=== PATIENT | male | born 1965 | race Caucasian/White ===

== ENCOUNTER 2022-05-09 10:13 | Inpatient (IN) | payer OTHER ==
[2022-05-09 10:52] VITALS: BMI 29.2
[2022-05-09] MEDS ORDERED: LOPERAMIDE HCL 2 MG CAPSULE PO PRN (11:15)
[2022-05-09] MEDS ORDERED: P-EPHED 60MG/TRIPROLIDI 2.5MG TABLET PO PRN (11:15)
[2022-05-09] MEDS ORDERED: MAG HYDROX/AL HYDROX/SIMETH 30 ML UNIT-DOSE CUP PO PRN (11:15)
[2022-05-09] MEDS ORDERED: guaiFENesin 200 MG/10 ML 10 ML UNIT-DOSE CUPS PO PRN (11:15)
[2022-05-09] MEDS ORDERED: hydrOXYzine PAMOATE 25 MG CAPSULE (FP) PO PRN (11:15)
[2022-05-09] MEDS ORDERED: BENZOCAINE/MENTHOL (CHLORASEPTIC ) LOZENGE MM PRN (11:15)
[2022-05-09 14:50] LABS: HEMATOCRIT 38.4 % (35.4-49); HEMOGLOBIN 12.7 GM/dL (11.7-16.9); MCH 30.6 pg (25.7-33.7); MEAN CELL VOLUME 92.7 fl (80-96); MEAN PLT VOLUME 8.2 fl (7.5-11.1); PLATELET COUNT 179 10^3/uL (134-434); RBC 4.14 M/mm3 (4.00-5.60); RDW 14.9 % (11.9-15.9); WHITE BLOOD COUNT 4.4 K/mm3 (4.0-10.0)
[2022-05-09 15:54] LABS: SYPHILIS W/ RPR CONF NON-REACTIVE (NONREACTIVE)
[2022-05-09 16:26] LABS: BLOOD UREA NITROGEN 16.1 mg/dL (7-18); CALCIUM 9.4 mg/dL (8.5-10.1)
[2022-05-09 16:27] LABS: ALBUMIN 3.4 g/dl (3.4-5.0)
[2022-05-09 16:30] LABS: CREATININE 1.4 mg/dL (0.55-1.3)
[2022-05-09 16:31] LABS: BILIRUBIN,TOTAL 0.2 mg/dL (0.2-1); TOT PROT 7.2 g/dl (6.4-8.2)
[2022-05-09] MEDS: NICOTINE 14 MG/24 HOURS TOPICAL PATCH TD SCH (16:54)
[2022-05-09] MEDS: PRENATAL VITAMINS W/ FOLIC ACID TABLET (FP) PO SCH (16:54)
[2022-05-09] MEDS ORDERED: TUBERCULIN PPD 5 TU/0.1ML VIAL ID ONE (16:55)
[2022-05-09] MEDS: THIAMINE HCL 100 MG TABLET (FP) PO SCH (21:09)
[2022-05-09] MEDS: MELATONIN 5 MG TABLETS PO SCH (21:09)
[2022-05-10 00:17] LABS: URINE APPEARANCE CLEAR; URINE BILIRUBIN NEGATIVE (NEGATIVE); URINE COLOR YELLOW; URINE GLUCOSE (UA) NEGATIVE (NEGATIVE); URINE KETONE NEGATIVE (NEGATIVE); URINE LEUK ESTERASE NEGATIVE (NEGATIVE); URINE NITRITE NEGATIVE (NEGATIVE); URINE PROTEIN NEGATIVE (NEGATIVE); URINE UROBILINOGEN 0.2 mg/dL (0.2-1.0)
[2022-05-10] MEDS ORDERED: methaDONE HCL 40 MG DISPERSABLE TABLET PO ONE (08:46)
[2022-05-10] MEDS: PRENATAL VITAMINS W/ FOLIC ACID TABLET (FP) PO SCH (10:33)
[2022-05-10] MEDS: NICOTINE 14 MG/24 HOURS TOPICAL PATCH TD SCH (10:33)
[2022-05-10] MEDS: THIAMINE HCL 100 MG TABLET (FP) PO SCH (21:10)
[2022-05-10] MEDS: MELATONIN 5 MG TABLETS PO SCH (21:10)
[2022-05-10] MEDS: LITHIUM CARBONATE 450 MG TABLET.ER PO SCH (21:11)
[2022-05-10] MEDS: MIRTAZAPINE 15 MG TABLET (FP) PO SCH (21:11)
[2022-05-10] MEDS: OLANZapine 10 MG TABLET PO SCH (21:11)
[2022-05-10] MEDS ORDERED: LITHIUM CARBONATE 450 MG TABLET.ER PO SCH (22:00)
[2022-05-11] MEDS ORDERED: methaDONE HCL 40 MG DISPERSABLE TABLET PO ONE (06:00)
[2022-05-11] MEDS ORDERED: methaDONE HCL 10 MG TABLET PO ONE (06:00)
[2022-05-11] MEDS: PRENATAL VITAMINS W/ FOLIC ACID TABLET (FP) PO SCH (09:39)
[2022-05-11] MEDS: NICOTINE 14 MG/24 HOURS TOPICAL PATCH TD SCH (09:39)
[2022-05-11] MEDS: OLANZapine 10 MG TABLET PO SCH (21:13)
[2022-05-11] MEDS: LITHIUM CARBONATE 450 MG TABLET.ER PO SCH (21:13)
[2022-05-11] MEDS: MELATONIN 5 MG TABLETS PO SCH (21:14)
[2022-05-11] MEDS: THIAMINE HCL 100 MG TABLET (FP) PO SCH (21:14)
[2022-05-11] MEDS: MIRTAZAPINE 15 MG TABLET (FP) PO SCH (21:14)
[2022-05-12] MEDS ORDERED: methaDONE HCL 10 MG TABLET PO ONE (06:00)
[2022-05-12] MEDS: methaDONE 40 MG, methaDONE 10 MG PO SCH (06:32)
[2022-05-12] MEDS: PRENATAL VITAMINS W/ FOLIC ACID TABLET (FP) PO SCH (09:03)
[2022-05-12] MEDS: NICOTINE 14 MG/24 HOURS TOPICAL PATCH TD SCH (09:04)
[2022-05-12] MEDS: OLANZapine 10 MG TABLET PO SCH (21:04)
[2022-05-12] MEDS: MIRTAZAPINE 15 MG TABLET (FP) PO SCH (21:04)
[2022-05-12] MEDS: LITHIUM CARBONATE 450 MG TABLET.ER PO SCH (21:04)
[2022-05-12] MEDS: THIAMINE HCL 100 MG TABLET (FP) PO SCH (21:04)
[2022-05-12] MEDS: MELATONIN 5 MG TABLETS PO SCH (21:04)
[2022-05-13] MEDS: methaDONE 40 MG, methaDONE 10 MG PO SCH (05:45)
[2022-05-13] MEDS ORDERED: methaDONE HCL 10 MG TABLET PO ONE (06:00)
[2022-05-13] MEDS: PRENATAL VITAMINS W/ FOLIC ACID TABLET (FP) PO SCH (09:55)
[2022-05-13] MEDS: NICOTINE 14 MG/24 HOURS TOPICAL PATCH TD SCH (09:56)
[2022-05-13] MEDS: MELATONIN 5 MG TABLETS PO SCH (21:24)
[2022-05-13] MEDS: LITHIUM CARBONATE 450 MG TABLET.ER PO SCH (21:24)
[2022-05-13] MEDS: OLANZapine 10 MG TABLET PO SCH (21:24)
[2022-05-13] MEDS: MIRTAZAPINE 15 MG TABLET (FP) PO SCH (21:24)
[2022-05-13] MEDS: THIAMINE HCL 100 MG TABLET (FP) PO SCH (21:24)
[2022-05-14] MEDS ORDERED: methaDONE HCL 10 MG TABLET PO ONE (06:00)
[2022-05-14] MEDS: methaDONE 40 MG, methaDONE 20 MG PO SCH (06:01)
[2022-05-14] MEDS: NICOTINE 14 MG/24 HOURS TOPICAL PATCH TD SCH (09:49)
[2022-05-14] MEDS: PRENATAL VITAMINS W/ FOLIC ACID TABLET (FP) PO SCH (09:49)
[2022-05-14] MEDS: OLANZapine 10 MG TABLET PO SCH (21:13)
[2022-05-14] MEDS: LITHIUM CARBONATE 450 MG TABLET.ER PO SCH (21:13)
[2022-05-14] MEDS: MIRTAZAPINE 15 MG TABLET (FP) PO SCH (21:13)
[2022-05-14] MEDS: MELATONIN 5 MG TABLETS PO SCH (21:13)
[2022-05-14] MEDS: THIAMINE HCL 100 MG TABLET (FP) PO SCH (21:13)
[2022-05-15] MEDS ORDERED: methaDONE HCL 10 MG TABLET PO ONE (06:00)
[2022-05-15] MEDS: methaDONE 40 MG, methaDONE 20 MG PO SCH (06:21)
[2022-05-15] MEDS: NICOTINE 14 MG/24 HOURS TOPICAL PATCH TD SCH (10:05)
[2022-05-15] MEDS: PRENATAL VITAMINS W/ FOLIC ACID TABLET (FP) PO SCH (10:05)
[2022-05-15] MEDS: HYDROCORTISONE 0.5% TOPICAL CREAM 30 GM TUBE TP PRN (10:06)
[2022-05-15] MEDS: MELATONIN 5 MG TABLETS PO SCH (21:28)
[2022-05-15] MEDS: OLANZapine 10 MG TABLET PO SCH (21:29)
[2022-05-15] MEDS: LITHIUM CARBONATE 450 MG TABLET.ER PO SCH (21:29)
[2022-05-15] MEDS: NICOTINE 10 MG CARTRIDGE (INHALER) IH PRN (21:29)
[2022-05-15] MEDS: MIRTAZAPINE 15 MG TABLET (FP) PO SCH (21:29)
[2022-05-15] MEDS: THIAMINE HCL 100 MG TABLET (FP) PO SCH (21:29)
[2022-05-16] MEDS ORDERED: methaDONE HCL 10 MG TABLET PO ONE (06:00)
[2022-05-16] MEDS ORDERED: methaDONE 40 MG, methaDONE 30 MG PO ONE (06:00)
[2022-05-16] MEDS: NICOTINE 14 MG/24 HOURS TOPICAL PATCH TD SCH (09:46)
[2022-05-16] MEDS: PRENATAL VITAMINS W/ FOLIC ACID TABLET (FP) PO SCH (09:46)
[2022-05-16] MEDS: NICOTINE 10 MG CARTRIDGE (INHALER) IH PRN ×2 (09:47→21:12)
[2022-05-16] MEDS: MIRTAZAPINE 15 MG TABLET (FP) PO SCH (21:12)
[2022-05-16] MEDS: LITHIUM CARBONATE 450 MG TABLET.ER PO SCH (21:12)
[2022-05-16] MEDS: MELATONIN 5 MG TABLETS PO SCH (21:12)
[2022-05-16] MEDS: THIAMINE HCL 100 MG TABLET (FP) PO SCH (21:12)
[2022-05-16] MEDS: OLANZapine 10 MG TABLET PO SCH (21:12)
[2022-05-17] MEDS ORDERED: methaDONE HCL 10 MG TABLET PO ONE ×2 (06:00→06:37)
[2022-05-17] MEDS ORDERED: methaDONE 40 MG, methaDONE 30 MG PO ONE (07:15)
[2022-05-17] MEDS: NICOTINE 10 MG CARTRIDGE (INHALER) IH PRN ×2 (09:28→21:01)
[2022-05-17] MEDS: NICOTINE 14 MG/24 HOURS TOPICAL PATCH TD SCH (09:28)
[2022-05-17] MEDS: HYDROCORTISONE 0.5% TOPICAL CREAM 30 GM TUBE TP PRN (09:28)
[2022-05-17] MEDS: PRENATAL VITAMINS W/ FOLIC ACID TABLET (FP) PO SCH (09:28)
[2022-05-17] MEDS: MIRTAZAPINE 15 MG TABLET (FP) PO SCH (21:00)
[2022-05-17] MEDS: THIAMINE HCL 100 MG TABLET (FP) PO SCH (21:00)
[2022-05-17] MEDS: LITHIUM CARBONATE 450 MG TABLET.ER PO SCH (21:00)
[2022-05-17] MEDS: OLANZapine 10 MG TABLET PO SCH (21:00)
[2022-05-17] MEDS: MELATONIN 5 MG TABLETS PO SCH (21:00)
[2022-05-18] MEDS ORDERED: methaDONE HCL 10 MG TABLET PO ONE (06:00)
[2022-05-18] MEDS: methaDONE HCL 40 MG DISPERSABLE TABLET PO SCH (06:02)
[2022-05-18] MEDS: PRENATAL VITAMINS W/ FOLIC ACID TABLET (FP) PO SCH (09:45)
[2022-05-18] MEDS: NICOTINE 10 MG CARTRIDGE (INHALER) IH PRN ×3 (09:45→21:21)
[2022-05-18] MEDS: NICOTINE 14 MG/24 HOURS TOPICAL PATCH TD SCH (09:45)
[2022-05-18] MEDS: OLANZapine 10 MG TABLET PO SCH (21:21)
[2022-05-18] MEDS: THIAMINE HCL 100 MG TABLET (FP) PO SCH (21:21)
[2022-05-18] MEDS: MIRTAZAPINE 15 MG TABLET (FP) PO SCH (21:21)
[2022-05-18] MEDS: MELATONIN 5 MG TABLETS PO SCH (21:22)
[2022-05-18] MEDS: LITHIUM CARBONATE 450 MG TABLET.ER PO SCH (21:22)
[2022-05-18] MEDS: HYDROCORTISONE 0.5% TOPICAL CREAM 30 GM TUBE TP PRN (21:23)
[2022-05-19] MEDS: methaDONE HCL 40 MG DISPERSABLE TABLET PO SCH (05:51)
[2022-05-19] MEDS ORDERED: methaDONE HCL 10 MG TABLET PO SCH (06:00)
[2022-05-19] MEDS: PRENATAL VITAMINS W/ FOLIC ACID TABLET (FP) PO SCH (09:23)
[2022-05-19] MEDS: NICOTINE 10 MG CARTRIDGE (INHALER) IH PRN ×2 (09:23→21:49)
[2022-05-19] MEDS: NICOTINE 14 MG/24 HOURS TOPICAL PATCH TD SCH (09:23)
[2022-05-19] MEDS: MELATONIN 5 MG TABLETS PO SCH (21:48)
[2022-05-19] MEDS: MIRTAZAPINE 15 MG TABLET (FP) PO SCH (21:49)
[2022-05-19] MEDS: HYDROCORTISONE 0.5% TOPICAL CREAM 30 GM TUBE TP PRN (21:49)
[2022-05-19] MEDS: LITHIUM CARBONATE 450 MG TABLET.ER PO SCH (21:49)
[2022-05-19] MEDS: THIAMINE HCL 100 MG TABLET (FP) PO SCH (21:50)
[2022-05-19] MEDS: OLANZapine 10 MG TABLET PO SCH (21:51)
[2022-05-20] MEDS: methaDONE HCL 40 MG DISPERSABLE TABLET PO SCH (06:12)
[2022-05-20] MEDS: NICOTINE 10 MG CARTRIDGE (INHALER) IH PRN ×3 (06:13→21:10)
[2022-05-20] MEDS: PRENATAL VITAMINS W/ FOLIC ACID TABLET (FP) PO SCH (09:31)
[2022-05-20] MEDS: NICOTINE 14 MG/24 HOURS TOPICAL PATCH TD SCH (09:32)
[2022-05-20] MEDS: MELATONIN 5 MG TABLETS PO SCH (21:08)
[2022-05-20] MEDS: THIAMINE HCL 100 MG TABLET (FP) PO SCH (21:08)
[2022-05-20] MEDS: MIRTAZAPINE 15 MG TABLET (FP) PO SCH (21:09)
[2022-05-20] MEDS: HYDROCORTISONE 0.5% TOPICAL CREAM 30 GM TUBE TP PRN (21:09)
[2022-05-20] MEDS: LITHIUM CARBONATE 450 MG TABLET.ER PO SCH (21:09)
[2022-05-20] MEDS: OLANZapine 10 MG TABLET PO SCH (21:09)
[2022-05-21] MEDS: NICOTINE 10 MG CARTRIDGE (INHALER) IH PRN ×3 (05:56→21:16)
[2022-05-21] MEDS: methaDONE HCL 40 MG DISPERSABLE TABLET PO SCH (05:57)
[2022-05-21] MEDS: NICOTINE 14 MG/24 HOURS TOPICAL PATCH TD SCH (10:34)
[2022-05-21] MEDS: PRENATAL VITAMINS W/ FOLIC ACID TABLET (FP) PO SCH (10:34)
[2022-05-21] MEDS: HYDROCORTISONE 0.5% TOPICAL CREAM 30 GM TUBE TP PRN (14:05)
[2022-05-21] MEDS: LITHIUM CARBONATE 450 MG TABLET.ER PO SCH (21:16)
[2022-05-21] MEDS: MELATONIN 5 MG TABLETS PO SCH (21:16)
[2022-05-21] MEDS: OLANZapine 10 MG TABLET PO SCH (21:16)
[2022-05-21] MEDS: MIRTAZAPINE 15 MG TABLET (FP) PO SCH (21:16)
[2022-05-21] MEDS: THIAMINE HCL 100 MG TABLET (FP) PO SCH (22:08)
[2022-05-22] MEDS: methaDONE HCL 40 MG DISPERSABLE TABLET PO SCH (06:06)
[2022-05-22] MEDS: NICOTINE 10 MG CARTRIDGE (INHALER) IH PRN ×4 (06:06→21:09)
[2022-05-22 06:57] VITALS: RESP 18
[2022-05-22] MEDS: NICOTINE 14 MG/24 HOURS TOPICAL PATCH TD SCH (09:33)
[2022-05-22] MEDS: PRENATAL VITAMINS W/ FOLIC ACID TABLET (FP) PO SCH (09:33)
[2022-05-22] MEDS: HYDROCORTISONE 0.5% TOPICAL CREAM 30 GM TUBE TP PRN (09:34)
[2022-05-22] MEDS: COLLOIDAL OATMEAL 1 BAR EACH TP PRN (14:13)
[2022-05-22] MEDS ORDERED: CALAMINE 8% TOPICAL LOTION 177 ML BOTTLE TP PRN (14:19)
[2022-05-22] MEDS: LITHIUM CARBONATE 450 MG TABLET.ER PO SCH (21:08)
[2022-05-22] MEDS: MIRTAZAPINE 15 MG TABLET (FP) PO SCH (21:08)
[2022-05-22] MEDS: THIAMINE HCL 100 MG TABLET (FP) PO SCH (21:08)
[2022-05-22] MEDS: MELATONIN 5 MG TABLETS PO SCH (21:08)
[2022-05-22] MEDS: OLANZapine 10 MG TABLET PO SCH (21:08)
[2022-05-23] MEDS: methaDONE HCL 40 MG DISPERSABLE TABLET PO SCH (06:10)
[2022-05-23] MEDS: NICOTINE 10 MG CARTRIDGE (INHALER) IH PRN ×4 (06:11→21:10)
[2022-05-23] MEDS: PRENATAL VITAMINS W/ FOLIC ACID TABLET (FP) PO SCH (09:25)
[2022-05-23] MEDS: NICOTINE 14 MG/24 HOURS TOPICAL PATCH TD SCH (09:25)
[2022-05-23 11:03] LABS: CALCIUM 9.1 mg/dL (8.5-10.1)
[2022-05-23 11:04] LABS: ALBUMIN 3.3 g/dl (3.4-5.0); BLOOD UREA NITROGEN 22.4 mg/dL (7-18)
[2022-05-23 11:06] LABS: CREATININE 1.3 mg/dL (0.55-1.3)
[2022-05-23 11:08] LABS: BILIRUBIN,TOTAL 0.4 mg/dL (0.2-1)
[2022-05-23] MEDS: hydrOXYzine PAMOATE 25 MG CAPSULE (FP) PO PRN ×2 (15:37→21:10)
[2022-05-23] MEDS: MIRTAZAPINE 15 MG TABLET (FP) PO SCH (21:10)
[2022-05-23] MEDS: LITHIUM CARBONATE 450 MG TABLET.ER PO SCH (21:10)
[2022-05-23] MEDS: MELATONIN 5 MG TABLETS PO SCH (21:10)
[2022-05-23] MEDS: THIAMINE HCL 100 MG TABLET (FP) PO SCH (21:10)
[2022-05-23] MEDS: OLANZapine 10 MG TABLET PO SCH (21:10)
[2022-05-24] MEDS: methaDONE HCL 40 MG DISPERSABLE TABLET PO SCH (06:11)
[2022-05-24] MEDS: NICOTINE 10 MG CARTRIDGE (INHALER) IH PRN ×4 (06:11→21:09)
[2022-05-24] MEDS: PRENATAL VITAMINS W/ FOLIC ACID TABLET (FP) PO SCH (09:56)
[2022-05-24] MEDS: NICOTINE 14 MG/24 HOURS TOPICAL PATCH TD SCH (11:06)
[2022-05-24] MEDS: hydrOXYzine PAMOATE 25 MG CAPSULE (FP) PO PRN ×2 (14:00→21:09)
[2022-05-24] MEDS: THIAMINE HCL 100 MG TABLET (FP) PO SCH (21:09)
[2022-05-24] MEDS: LITHIUM CARBONATE 450 MG TABLET.ER PO SCH (21:09)
[2022-05-24] MEDS: MIRTAZAPINE 15 MG TABLET (FP) PO SCH (21:09)
[2022-05-24] MEDS: MELATONIN 5 MG TABLETS PO SCH (21:09)
[2022-05-24] MEDS: OLANZapine 10 MG TABLET PO SCH (21:09)
[2022-05-25] MEDS: NICOTINE 10 MG CARTRIDGE (INHALER) IH PRN ×4 (06:07→21:00)
[2022-05-25] MEDS: methaDONE HCL 40 MG DISPERSABLE TABLET PO SCH (06:08)
[2022-05-25] MEDS: IBUPROFEN 400 MG TABLET (FP) PO PRN ×2 (06:08→20:05)
[2022-05-25] MEDS: hydrOXYzine PAMOATE 25 MG CAPSULE (FP) PO PRN ×2 (06:09→21:00)
[2022-05-25] MEDS: NICOTINE 14 MG/24 HOURS TOPICAL PATCH TD SCH (09:56)
[2022-05-25] MEDS: PRENATAL VITAMINS W/ FOLIC ACID TABLET (FP) PO SCH (09:57)
[2022-05-25] MEDS: ACETAMINOPHEN 325 MG TABLET (FP) PO PRN (09:58)
[2022-05-25] MEDS: BACLOFEN 10 MG TABLET (FP) PO SCH ×2 (13:10→20:59)
[2022-05-25] MEDS: MELATONIN 5 MG TABLETS PO SCH (20:59)
[2022-05-25] MEDS: OLANZapine 10 MG TABLET PO SCH (20:59)
[2022-05-25] MEDS: THIAMINE HCL 100 MG TABLET (FP) PO SCH (20:59)
[2022-05-25] MEDS: MIRTAZAPINE 15 MG TABLET (FP) PO SCH (20:59)
[2022-05-25] MEDS: LITHIUM CARBONATE 450 MG TABLET.ER PO SCH (21:42)
[2022-05-26] MEDS: BACLOFEN 10 MG TABLET (FP) PO SCH ×3 (06:08→21:41)
[2022-05-26] MEDS: methaDONE HCL 40 MG DISPERSABLE TABLET PO SCH (06:08)
[2022-05-26] MEDS: NICOTINE 10 MG CARTRIDGE (INHALER) IH PRN ×4 (06:09→21:42)
[2022-05-26] MEDS: PRENATAL VITAMINS W/ FOLIC ACID TABLET (FP) PO SCH (09:31)
[2022-05-26] MEDS: NICOTINE 14 MG/24 HOURS TOPICAL PATCH TD SCH (09:32)
[2022-05-26] MEDS: ACETAMINOPHEN 325 MG TABLET (FP) PO PRN (09:33)
[2022-05-26] MEDS: MELATONIN 5 MG TABLETS PO SCH (21:41)
[2022-05-26] MEDS: THIAMINE HCL 100 MG TABLET (FP) PO SCH (21:41)
[2022-05-26] MEDS: MIRTAZAPINE 15 MG TABLET (FP) PO SCH (21:41)
[2022-05-26] MEDS: hydrOXYzine PAMOATE 25 MG CAPSULE (FP) PO PRN (21:41)
[2022-05-26] MEDS: LITHIUM CARBONATE 450 MG TABLET.ER PO SCH (21:41)
[2022-05-26] MEDS: OLANZapine 10 MG TABLET PO SCH (21:41)
[2022-05-27] MEDS: BACLOFEN 10 MG TABLET (FP) PO SCH ×3 (06:00→21:18)
[2022-05-27] MEDS: NICOTINE 10 MG CARTRIDGE (INHALER) IH PRN ×3 (06:00→21:18)
[2022-05-27] MEDS: methaDONE HCL 40 MG DISPERSABLE TABLET PO SCH (06:00)
[2022-05-27] MEDS: NICOTINE 14 MG/24 HOURS TOPICAL PATCH TD SCH (09:27)
[2022-05-27] MEDS: PRENATAL VITAMINS W/ FOLIC ACID TABLET (FP) PO SCH (09:27)
[2022-05-27] MEDS: hydrOXYzine PAMOATE 25 MG CAPSULE (FP) PO PRN ×2 (12:38→21:17)
[2022-05-27] MEDS: LITHIUM CARBONATE 450 MG TABLET.ER PO SCH (21:17)
[2022-05-27] MEDS: MELATONIN 5 MG TABLETS PO SCH (21:17)
[2022-05-27] MEDS: THIAMINE HCL 100 MG TABLET (FP) PO SCH (21:18)
[2022-05-27] MEDS: OLANZapine 10 MG TABLET PO SCH (21:18)
[2022-05-27] MEDS: MIRTAZAPINE 15 MG TABLET (FP) PO SCH (21:18)
[2022-05-28] MEDS: BACLOFEN 10 MG TABLET (FP) PO SCH ×3 (06:09→21:16)
[2022-05-28] MEDS: methaDONE HCL 40 MG DISPERSABLE TABLET PO SCH (06:09)
[2022-05-28] MEDS: NICOTINE 10 MG CARTRIDGE (INHALER) IH PRN ×4 (06:09→21:17)
[2022-05-28] MEDS: NICOTINE 14 MG/24 HOURS TOPICAL PATCH TD SCH (09:31)
[2022-05-28] MEDS: PRENATAL VITAMINS W/ FOLIC ACID TABLET (FP) PO SCH (09:31)
[2022-05-28] MEDS: hydrOXYzine PAMOATE 25 MG CAPSULE (FP) PO PRN ×2 (13:37→21:16)
[2022-05-28] MEDS: MAGNESIUM HYDROX 2400MG/30ML ORAL SUSPENSION 30 ML CUP PO PRN (13:38)
[2022-05-28] MEDS: MIRTAZAPINE 15 MG TABLET (FP) PO SCH (21:16)
[2022-05-28] MEDS: MELATONIN 5 MG TABLETS PO SCH (21:16)
[2022-05-28] MEDS: OLANZapine 10 MG TABLET PO SCH (21:16)
[2022-05-28] MEDS: THIAMINE HCL 100 MG TABLET (FP) PO SCH (21:16)
[2022-05-28] MEDS: LITHIUM CARBONATE 450 MG TABLET.ER PO SCH (21:16)
[2022-05-29] MEDS: NICOTINE 10 MG CARTRIDGE (INHALER) IH PRN ×4 (06:11→21:02)
[2022-05-29] MEDS: methaDONE HCL 40 MG DISPERSABLE TABLET PO SCH (06:11)
[2022-05-29] MEDS: BACLOFEN 10 MG TABLET (FP) PO SCH ×3 (06:11→21:02)
[2022-05-29] MEDS: NICOTINE 14 MG/24 HOURS TOPICAL PATCH TD SCH (09:25)
[2022-05-29] MEDS: PRENATAL VITAMINS W/ FOLIC ACID TABLET (FP) PO SCH (09:25)
[2022-05-29] MEDS: hydrOXYzine PAMOATE 25 MG CAPSULE (FP) PO PRN ×2 (13:09→21:02)
[2022-05-29] MEDS: MAGNESIUM HYDROX 2400MG/30ML ORAL SUSPENSION 30 ML CUP PO PRN (16:36)
[2022-05-29] MEDS: MIRTAZAPINE 15 MG TABLET (FP) PO SCH (21:02)
[2022-05-29] MEDS: OLANZapine 10 MG TABLET PO SCH (21:02)
[2022-05-29] MEDS: THIAMINE HCL 100 MG TABLET (FP) PO SCH (21:02)
[2022-05-29] MEDS: MELATONIN 5 MG TABLETS PO SCH (21:02)
[2022-05-29] MEDS: LITHIUM CARBONATE 450 MG TABLET.ER PO SCH (21:02)
[2022-05-30] MEDS: BACLOFEN 10 MG TABLET (FP) PO SCH ×3 (06:20→21:02)
[2022-05-30] MEDS: methaDONE HCL 40 MG DISPERSABLE TABLET PO SCH (06:20)
[2022-05-30] MEDS: NICOTINE 10 MG CARTRIDGE (INHALER) IH PRN ×3 (06:21→21:03)
[2022-05-30] MEDS: NICOTINE 14 MG/24 HOURS TOPICAL PATCH TD SCH (09:31)
[2022-05-30] MEDS: PRENATAL VITAMINS W/ FOLIC ACID TABLET (FP) PO SCH (09:32)
[2022-05-30] MEDS: MAGNESIUM HYDROX 2400MG/30ML ORAL SUSPENSION 30 ML CUP PO PRN (09:33)
[2022-05-30] MEDS: POLYETHYLENE GLYCOL (HEALTHYLAX) 3350 17 GM PACKET PO PRN (13:33)
[2022-05-30] MEDS ORDERED: NICOTINE 14 MG/24 HOURS TOPICAL PATCH TD PRN (16:58)
[2022-05-30] MEDS: THIAMINE HCL 100 MG TABLET (FP) PO SCH (21:01)
[2022-05-30] MEDS: MELATONIN 5 MG TABLETS PO SCH (21:01)
[2022-05-30] MEDS: LITHIUM CARBONATE 450 MG TABLET.ER PO SCH (21:02)
[2022-05-30] MEDS: OLANZapine 10 MG TABLET PO SCH (21:02)
[2022-05-30] MEDS: MIRTAZAPINE 15 MG TABLET (FP) PO SCH (21:02)
[2022-05-30] MEDS: hydrOXYzine PAMOATE 25 MG CAPSULE (FP) PO PRN (21:02)
[2022-05-31] MEDS: NICOTINE 10 MG CARTRIDGE (INHALER) IH PRN ×4 (05:54→21:02)
[2022-05-31] MEDS: BACLOFEN 10 MG TABLET (FP) PO SCH ×3 (05:54→21:01)
[2022-05-31] MEDS: methaDONE HCL 40 MG DISPERSABLE TABLET PO SCH (05:55)
[2022-05-31] MEDS: PRENATAL VITAMINS W/ FOLIC ACID TABLET (FP) PO SCH (09:23)
[2022-05-31] MEDS: POLYETHYLENE GLYCOL (HEALTHYLAX) 3350 17 GM PACKET PO PRN (09:24)
[2022-05-31] MEDS: hydrOXYzine PAMOATE 25 MG CAPSULE (FP) PO PRN ×2 (13:30→21:01)
[2022-05-31] MEDS: MELATONIN 5 MG TABLETS PO SCH (21:01)
[2022-05-31] MEDS: MIRTAZAPINE 15 MG TABLET (FP) PO SCH (21:01)
[2022-05-31] MEDS: OLANZapine 10 MG TABLET PO SCH (21:02)
[2022-05-31] MEDS: THIAMINE HCL 100 MG TABLET (FP) PO SCH (21:02)
[2022-05-31] MEDS: LITHIUM CARBONATE 450 MG TABLET.ER PO SCH (21:02)
[2022-06-01] MEDS: methaDONE HCL 40 MG DISPERSABLE TABLET PO SCH (06:00)
[2022-06-01] MEDS: NICOTINE 10 MG CARTRIDGE (INHALER) IH PRN ×4 (06:00→21:34)
[2022-06-01] MEDS: BACLOFEN 10 MG TABLET (FP) PO SCH (06:00)
[2022-06-01] MEDS: PRENATAL VITAMINS W/ FOLIC ACID TABLET (FP) PO SCH (09:21)
[2022-06-01] MEDS ORDERED: DOCUSATE SODIUM 100 MG CAPSULE (FP) PO PRN (11:12)
[2022-06-01] MEDS ORDERED: SODIUM PHOSPHATE/NA BIPHOS 133 ML ENEMA RC ONE (11:15)
[2022-06-01] MEDS: LACTULOSE 20 GM/30 ML UDC (FOR ORAL USE ONLY) PO PRN ×2 (11:33→21:36)
[2022-06-01] MEDS: hydrOXYzine PAMOATE 25 MG CAPSULE (FP) PO PRN (17:30)
[2022-06-01] MEDS: MELATONIN 5 MG TABLETS PO SCH (21:33)
[2022-06-01] MEDS: LITHIUM CARBONATE 450 MG TABLET.ER PO SCH (21:33)
[2022-06-01] MEDS: OLANZapine 10 MG TABLET PO SCH (21:34)
[2022-06-01] MEDS: THIAMINE HCL 100 MG TABLET (FP) PO SCH (21:34)
[2022-06-01] MEDS: MIRTAZAPINE 15 MG TABLET (FP) PO SCH (21:34)
[2022-06-02] MEDS: NICOTINE 10 MG CARTRIDGE (INHALER) IH PRN ×4 (06:12→21:05)
[2022-06-02] MEDS: BACLOFEN 10 MG TABLET (FP) PO PRN (06:13)
[2022-06-02] MEDS: methaDONE HCL 40 MG DISPERSABLE TABLET PO SCH (06:13)
[2022-06-02] MEDS: PRENATAL VITAMINS W/ FOLIC ACID TABLET (FP) PO SCH (10:03)
[2022-06-02] MEDS: LACTULOSE 20 GM/30 ML UDC (FOR ORAL USE ONLY) PO PRN ×2 (10:04→21:05)
[2022-06-02] MEDS: hydrOXYzine PAMOATE 25 MG CAPSULE (FP) PO PRN ×2 (15:48→21:05)
[2022-06-02] MEDS: MIRTAZAPINE 15 MG TABLET (FP) PO SCH (21:03)
[2022-06-02] MEDS: THIAMINE HCL 100 MG TABLET (FP) PO SCH (21:03)
[2022-06-02] MEDS: MELATONIN 5 MG TABLETS PO SCH (21:03)
[2022-06-02] MEDS: LITHIUM CARBONATE 450 MG TABLET.ER PO SCH (21:03)
[2022-06-02] MEDS: OLANZapine 10 MG TABLET PO SCH (21:03)
[2022-06-03] MEDS: NICOTINE 10 MG CARTRIDGE (INHALER) IH PRN ×4 (06:09→21:28)
[2022-06-03] MEDS: methaDONE HCL 40 MG DISPERSABLE TABLET PO SCH (06:09)
[2022-06-03] MEDS: BACLOFEN 10 MG TABLET (FP) PO PRN (06:10)
[2022-06-03] MEDS: PRENATAL VITAMINS W/ FOLIC ACID TABLET (FP) PO SCH (09:27)
[2022-06-03] MEDS: LACTULOSE 20 GM/30 ML UDC (FOR ORAL USE ONLY) PO PRN ×2 (09:28→17:01)
[2022-06-03] MEDS: hydrOXYzine PAMOATE 25 MG CAPSULE (FP) PO PRN (17:00)
[2022-06-03] MEDS: MIRTAZAPINE 15 MG TABLET (FP) PO SCH (21:27)
[2022-06-03] MEDS: LITHIUM CARBONATE 450 MG TABLET.ER PO SCH (21:28)
[2022-06-03] MEDS: THIAMINE HCL 100 MG TABLET (FP) PO SCH (21:28)
[2022-06-03] MEDS: OLANZapine 10 MG TABLET PO SCH (21:28)
[2022-06-03] MEDS: MELATONIN 5 MG TABLETS PO SCH (21:28)
[2022-06-04] MEDS: NICOTINE 10 MG CARTRIDGE (INHALER) IH PRN ×4 (06:06→21:19)
[2022-06-04] MEDS: methaDONE HCL 40 MG DISPERSABLE TABLET PO SCH (06:07)
[2022-06-04] MEDS: BACLOFEN 10 MG TABLET (FP) PO PRN (06:07)
[2022-06-04] MEDS: PRENATAL VITAMINS W/ FOLIC ACID TABLET (FP) PO SCH (10:13)
[2022-06-04] MEDS: LACTULOSE 20 GM/30 ML UDC (FOR ORAL USE ONLY) PO PRN ×2 (10:14→19:03)
[2022-06-04] MEDS: hydrOXYzine PAMOATE 25 MG CAPSULE (FP) PO PRN ×2 (13:40→21:17)
[2022-06-04] MEDS: MELATONIN 5 MG TABLETS PO SCH (21:17)
[2022-06-04] MEDS: THIAMINE HCL 100 MG TABLET (FP) PO SCH (21:17)
[2022-06-04] MEDS: LITHIUM CARBONATE 450 MG TABLET.ER PO SCH (21:17)
[2022-06-04] MEDS: MIRTAZAPINE 15 MG TABLET (FP) PO SCH (21:17)
[2022-06-04] MEDS: OLANZapine 10 MG TABLET PO SCH (21:18)
[2022-06-05] MEDS: NICOTINE 10 MG CARTRIDGE (INHALER) IH PRN ×3 (06:02→21:18)
[2022-06-05] MEDS: methaDONE HCL 40 MG DISPERSABLE TABLET PO SCH (06:03)
[2022-06-05 06:52] VITALS: TEMP 97.3
[2022-06-05] MEDS: PRENATAL VITAMINS W/ FOLIC ACID TABLET (FP) PO SCH (09:24)
[2022-06-05] MEDS: COLLOIDAL OATMEAL 1 BAR EACH TP PRN (09:25)
[2022-06-05] MEDS: LACTULOSE 20 GM/30 ML UDC (FOR ORAL USE ONLY) PO PRN ×2 (09:25→19:14)
[2022-06-05] MEDS: hydrOXYzine PAMOATE 25 MG CAPSULE (FP) PO PRN (21:17)
[2022-06-05] MEDS: OLANZapine 10 MG TABLET PO SCH (21:17)
[2022-06-05] MEDS: BACLOFEN 10 MG TABLET (FP) PO PRN (21:17)
[2022-06-05] MEDS: MELATONIN 5 MG TABLETS PO SCH (21:17)
[2022-06-05] MEDS: MIRTAZAPINE 15 MG TABLET (FP) PO SCH (21:17)
[2022-06-05] MEDS: THIAMINE HCL 100 MG TABLET (FP) PO SCH (21:17)
[2022-06-05] MEDS: LITHIUM CARBONATE 450 MG TABLET.ER PO SCH (21:17)
[2022-06-06] MEDS: NICOTINE 10 MG CARTRIDGE (INHALER) IH PRN ×2 (05:59→09:45)
[2022-06-06] MEDS: methaDONE HCL 40 MG DISPERSABLE TABLET PO SCH (06:00)
[2022-06-06 07:08] VITALS: BP 134/76; PULSE 84
[2022-06-06] MEDS: PRENATAL VITAMINS W/ FOLIC ACID TABLET (FP) PO SCH (09:44)
== END 2022-06-06 12:52 | disposition home or self-care (01) | DRG 772 ==
LOC: YASAS 10:13 → Y3W 14:31
PROVIDERS: ADMIT Allergy & Immunology; ATTEND Psychiatry & Neurology Pain Medicine
PROC: HZ42ZZZ Group Counseling for Substance Abuse Treatment, Cognitive-Behavioral (ICD-10-PCS; principal; 2022-05-09)
DX: F10.20 Alcohol dependence, uncomplicated (principal); F11.20 Opioid dependence, uncomplicated; F14.20 Cocaine dependence, uncomplicated; F17.210 Nicotine dependence, cigarettes, uncomplicated; F25.0 Schizoaffective disorder, bipolar type; F41.9 Anxiety disorder, unspecified; F32.A Depression, unspecified; I10 Essential (primary) hypertension; K59.00 Constipation, unspecified; R21 Rash and other nonspecific skin eruption; M62.838 Other muscle spasm; Z62.810 Personal history of physical and sexual abuse in childhood; Z99.89 Dependence on other enabling machines and devices; V09.9XXD Pedestrian injured in unspecified transport accident, subsequent encounter
CPT/HCPCS: 36415; 80053; 80178; 81003; 82962; 85027; 86780; 86803; 87522; 93005; 93010; C9803-CS; J0475; U0003; U0005